=== PATIENT | female | born 1990 | race Caucasian/White ===

== ENCOUNTER → 2017-01-20 | Outpatient (CLI) | payer OTHER | LOC: KOH-I 08:16 → US 08:30 → KOH-I 08:30 | DX: R10.11 Right upper quadrant pain (principal) | CPT/HCPCS: 76705 ==

== ENCOUNTER → 2022-05-01 | Outpatient (CLI) | payer OTHER ==
[~2022-05-01] MED LIST: NAPROSYN500 MG PO; OMNICEF 300 MG300 MG PO
== END ==
LOC: KOH-I 10:36
DX: M79.671 Pain in right foot (principal)
CPT/HCPCS: 73630